=== PATIENT | female | born 1985 | race Hispanic/Latino ===

== ENCOUNTER 2022-02-11 01:02 | Emergency (ER) | payer MEDICAID, OTHER ==
[~2022-02-11] VITALS: Ht 162.6 cm; Wt 113.9 kg
[~2022-02-11 01:02] MED LIST: ASPI-556 PO; CLOP75TA14 PO
[2022-02-11 01:52] LABS: BASOPHILS % (AUTO) 0.3 % (0.0-5.0); EOSINOPHILS % (AUTO) 1.5 % (0.0-8.0); HEMATOCRIT 38.1 % (36-48); LYMPHOCYTES % (AUTO) 29.6 % (21.0-51.0); MEAN CORPUSCULAR HEMOGLOBIN 30.6 pg (27.0-33.0); MEAN CORPUSCULAR HGB CONC 33.9 g/dL (32.0-36.0); MEAN CORPUSCULAR VOLUME 90.3 fL (79-99); MONOCYTES % (AUTO) 9.9 % (3.0-13.0); NEUTROPHILS % (AUTO) 58.4 % (40.0-77.0); PLATELET COUNT (AUTO) 166 K/uL (130-400); RED BLOOD CELL COUNT(AUTO) 4.22 MIL/uL (4.00-5.50); RED CELL DISTRIBUTION WIDTH 12.2 % (11.0-15.5); WHITE BLOOD COUNT (AUTO) 7.4 K/uL (4.8-10.8)
[2022-02-11 02:12] LABS: CREATININE 0.8 mg/dL (0.5-1.5); POTASSIUM 3.7 mmol/L (3.5-5.1)
[2022-02-11 02:16] LABS: ALBUMIN 3.8 g/dL (3.5-5.0); TOTAL PROTEIN, SERUM 7.6 g/dL (6.0-8.3)
[2022-02-11 02:29] LABS: APPEARANCE,URINE CLEAR (CLEAR); BILIRUBIN,URINE NEGATIVE (NEGATIVE); COLOR,URINE YELLOW (YELLOW); GLUCOSE, URINE (UA) NEGATIVE (NEGATIVE); KETONES,URINE NEGATIVE (NEGATIVE); LEUKOCYTE ESTERASE ,URINE NEGATIVE (NEGATIVE); NITRATE,URINE NEGATIVE (NEGATIVE); OCCULT BLOOD,URINE NEGATIVE (NEGATIVE); PH,URINE 7.5 (5.0-8.0); PROTEIN,URINE NEGATIVE (NEGATIVE); UROBILINOGEN,URINE 0.2 mg/dL (0.2-1.0)
[2022-02-11 02:31] LABS: HCG,QUALITATIVE URINE NEGATIVE (NEGATIVE)
[2022-02-11] MEDS ORDERED: ONDANSETRON 4MG INJ ONE (03:17)
[2022-02-11] MEDS ORDERED: FAMOTIDINE 20MG VIAL IV ONE (03:45)
[2022-02-11] MEDS ORDERED: FAMO-136 PO (03:50)
[2022-02-11 03:53] VITALS: BP 139/77
[2022-02-11] MEDS ORDERED: ONDANSETRON ODT 4MG TAB SL ONE (04:00)
[2022-02-11] MEDS ORDERED: FAMOTIDINE 20MG TAB PO ONE (04:00)
== END 2022-02-11 04:04 | disposition home or self-care (01) ==
LOC: EDH 01:02
DX: R10.13 Epigastric pain (principal); R11.0 Nausea; E66.9 Obesity, unspecified; Z68.41 Body mass index [BMI] 40.0-44.9, adult; Z79.82 Long term (current) use of aspirin
CPT/HCPCS: 99284; 96374; 96375; 80053; 83690; 85025; 81003; 81025; 36415; J3490; J2405